=== PATIENT | female | born 1965 | race Caucasian/White ===

== ENCOUNTER 2018-07-17 10:33 | Emergency (ER) | payer MEDICAID ==
--- NOTE | 2018-07-17 13:07 | EDM.PDOC ---
ED HPI GENERAL MEDICAL PROBLEM - General Chief Complaint: Skin Complaint Stated Complaint: SORES ON FEMALE AREA Time Seen by Provider: 07/17/18 11:40 Source of Information: Reports: Patient History Limitations: Reports: No Limitations - History of Present Illness INITIAL COMMENTS - FREE TEXT/NARRATIVE: pt states she has some cystic lesions around her vaginia which have increased in number. She has no urine symptoms. S he is having discharge. She has had a hysterectomy. Onset: Gradual Duration: Week(s): Associated Symptoms: Reports: No Other Symptoms - Related Data Allergies Allergy/AdvReac Type Severity Reaction Status Date / Time No Known Allergies Allergy Verified 07/17/18 11:25 Home Meds: Home Meds . 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: Polycystic Ovaries Musculoskeletal History: Reports: Arthritis, Back Pain, Chronic, Fracture Neurological History: Reports: Seizure Psychiatric History: Reports: Anxiety, Bipolar, Depression, Mood Swings, OCD, Psych Hospitalization(s), Suicide Attempt, Suicidal Ideation Endocrine/Metabolic History: Reports: Obesity/BMI 30+ Hematologic History: Reports: B12 Deficiency - Infectious Disease History Infectious Disease History: Reports: Chicken Pox - Past Surgical History HEENT Surgical History: Reports: Adenoidectomy, Oral Surgery, Tonsillectomy Other HEENT Surgeries/Procedures: dentures GI Surgical History: Reports: Bariatric Procedure Other GI Surgeries/Procedures: 2008 Female Surgical History: Reports: Hysterectomy, Salpingo-Oophorectomy Musculoskeletal Surgical History: Reports: Carpal Tunnel, Knee Replacement Other Musculoskeletal Surgeries/Procedures:: partial left knee Social & Family History - Tobacco Use Smoking Status *Q: Former Smoker Used Tobacco, but Quit: Yes Month/Year Tobacco Last Used: 2 months - Caffeine Use Caffeine Use: Reports: Soda - Recreational Drug Use Recreational Drug Use: Yes Recreational Drug Type: Reports: Marijuana/Hashish, Methamphetamine ED ROS GENERAL - Review of Systems Review Of Systems: See Below Constitutional: Reports: No Symptoms HEENT: Reports: No Symptoms Respiratory: Reports: No Symptoms Cardiovascular: Reports: No Symptoms Endocrine: Reports: No Symptoms GI/Abdominal: Reports: No Symptoms : Reports: Other ( cystric structures around the vag) Musculoskeletal: Reports: No Symptoms ED EXAM, SKIN/RASH Exam: See Below Text/Narrative:: pt arrived with some cystic strures around the vag. She has a heavy discharge. Exam Limited By: No Limitations General Appearance: Alert, Anxious Ears: Normal TMs Nose: Normal Inspection Throat/Mouth: Normal Inspection Head: Atraumatic Neck: Normal Inspection Respiratory/Chest: No Respiratory Distress Cardiovascular: Regular Rate, Rhythm (Female) Exam: Other (pt is having vag discharge and she has some papiloma type lesions. ) Back Exam: Normal Inspection Extremities: Normal Inspection Neurological: Alert, Oriented Course - Vital Signs Last Recorded V/S: Last Vital Signs Temp 35.8 C 07/17/18 11:14 Pulse 74 07/17/18 11:14 Resp 16 07/17/18 11:14 BP 107/67 07/17/18 11:14 Pulse Ox 96 07/17/18 11:14 - Orders/Labs/Meds Labs: Laboratory Tests 07/17/18 Range/Units 12:26 Urine Color Yellow Urine Appearance Slightly cloudy Urine pH 8.0 (4.5-8.0) Ur Specific [place] 1.010 (1.008-1.030) Urine Protein Negative (NEGATIVE) mg/dL Urine Glucose (UA) Normal (NEGATIVE) mg/dL Urine Ketones Negative (NEGATIVE) mg/dL Urine Occult Blood Negative (NEGATIVE) Urine Nitrite Negative (NEGATIVE) Urine Bilirubin Negative (NEGATIVE) Urine Urobilinogen Normal (NORMAL) mg/dL Ur Leukocyte Esterase Negative (NEGATIVE) Urine RBC 0-5 (0-5) Urine WBC 5-10 H (0-5) Ur Epithelial Cells Moderate Amorphous Sediment Moderate Urine Bacteria Moderate Urine Mucus Moderate - Re-Assessments/Exams Free Text/Narrative Re-Assessment/Exam: 07/17/18 13:01 pt has clue cells, logan is neg. cultures are pending 07/17/18 13:08 Departure - Departure Time of Disposition: 13:08 Disposition: Home, Self-Care 01 Condition: Fair Clinical Impression: HPV (human papilloma virus) infection, Bacterial vaginitis - Discharge Information Instructions: Human Papillomavirus, [id number], Bacterial Vaginosis, Easy-to- Read Referrals: PCP,None [Primary Care Provider] - Forms: ED Department Discharge Care Plan Goals: appt with Dr walter regarding hpv infection, urine culture pending amoxicillin 500mg tid for bacterial vaginitis. use probiotic while on antibiotic. Use monstat vag cream to avoid yeast infection while on the amoxicillin.
== END 2018-07-17 13:48 | disposition home or self-care (01) ==
LOC: JP.ED 10:33
DX: A63.0 Anogenital (venereal) warts (principal); N76.0 Acute vaginitis; B96.89 Other specified bacterial agents as the cause of diseases classified elsewhere
CPT/HCPCS: 81001; 87086; 87088; 87186; 87210; 87491; 87591; 99283

== ENCOUNTER 2018-07-23 15:09 | Emergency (ER) | payer MEDICAID ==
[2018-07-23] MEDS ORDERED: Ketorolac 30 MG/ML SDV IVPUSH ONE (15:31)
--- NOTE | 2018-07-23 15:44 | EDM.PDOC ---
ED HPI GENERAL MEDICAL PROBLEM - General Chief Complaint: Neurological Problem Stated Complaint: VIA NORTH Time Seen by Provider: 07/23/18 15:31 Source of Information: Reports: Patient, Old Records, RN Notes Reviewed History Limitations: Reports: No Limitations - History of Present Illness INITIAL COMMENTS - FREE TEXT/NARRATIVE: 52-year-old female presents emergency department today via EMS services for seizure and fall, she has a known seizure disorder patient states that she is had may be 2 seizures in last 6 [address]. Was at a local grocery store fell to the ground she ended up hitting her head she does have a large bruise over her left eyebrow she also is complaining of left shoulder pain , initially she was postictal per report by ambulance crew. She is currently titrating off Cymbalta while starting a new medication of Pristiq both are in the SNRI class headache Pain Score (Numeric/FACES): 3 - Related Data Allergies Allergy/AdvReac Type Severity Reaction Status Date / Time bupropion Allergy Shaking Verified 07/23/18 15:21 Home Meds: Home Meds Desvenlafaxine Succinate [Desvenlafaxine Succinate ER] 100 mg PO DAILY 07/23/18 [History] Divalproex Sodium 500 mg PO DAILY 07/23/18 [History] Folic Acid 1 mg PO DAILY 07/23/18 [History] Lisinopril 5 mg PO DAILY 07/23/18 [History] Magnesium Oxide 400 mg PO DAILY 07/23/18 [History] Naltrexone 50 mg PO DAILY 07/23/18 [History] QUEtiapine Fumarate [Quetiapine Fumarate] 200 mg PO BEDTIME 07/23/18 [History] cloNIDine [Catapres] 0.1 mg PO BID 07/23/18 [History] hydrOXYzine pamoate [Hydroxyzine Pamoate] 50 mg PO Q6H PRN 07/23/18 [History] Past Medical History Cardiovascular History: Reports: Hypertension 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: Polycystic Ovaries Musculoskeletal History: Reports: Arthritis, Back Pain, Chronic, Fracture Neurological History: Reports: Seizure Psychiatric History: Reports: Anxiety, Bipolar, Depression, Mood Swings, OCD, Psych Hospitalization(s), Suicide Attempt, Suicidal Ideation Endocrine/Metabolic History: Reports: Obesity/BMI 30+ Hematologic History: Reports: B12 Deficiency - Infectious Disease History Infectious Disease History: Reports: Chicken Pox - Past Surgical History HEENT Surgical History: Reports: Adenoidectomy, Oral Surgery, Tonsillectomy Other HEENT Surgeries/Procedures: dentures GI Surgical History: Reports: Bariatric Procedure Other GI Surgeries/Procedures: 2008 Female Surgical History: Reports: Hysterectomy, Salpingo-Oophorectomy Musculoskeletal Surgical History: Reports: Carpal Tunnel, Knee Replacement Other Musculoskeletal Surgeries/Procedures:: partial left knee Social & Family History - Tobacco Use Smoking Status *Q: Never Smoker - Caffeine Use Caffeine Use: Reports: Soda - Recreational Drug Use Recreational Drug Use: Yes Recreational Drug Type: Reports: Marijuana/Hashish, Methamphetamine Other Recreational Drug Type: meth twice Recreational Drug Use Frequency: Socially ED ROS GENERAL - Review of Systems Review Of Systems: See Below Constitutional: Reports: No Symptoms, Weight Gain Respiratory: Reports: No Symptoms Cardiovascular: Reports: No Symptoms GI/Abdominal: Reports: No Symptoms : Reports: No Symptoms Musculoskeletal: Reports: Shoulder Pain Skin: Reports: Bruising Neurological: Reports: Headache, Seizure ED EXAM, HEAD INJURY - Physical Exam Exam: See Below Text/Narrative:: General: Female, not in any distress, alert and oriented x3 HEENT: head is a large hematoma is appreciated above her left eyebrow about the size of a golf ball normocephalic, eyes pupils equal round reactive to light, sclera clear no conjunctivitis appreciated, extraocular eye movements intact. Ears tympanic membranes clear and leonard landmarks and light reflex are present bilaterally canals are clear. Nose no septal deviation, nares are clear, no blood present. Mouth mucosa is moist and pink no erythema or exudate noted in soft palate, tongue is midline does have a superficial laceration on the right lateral aspect of the tongue uvula is midline, dentition is intact. Neck: Supple no thyromegaly no tracheal deviation. Nodes: Cervical nodes subclavicular nodes nontender no palpable lymphadenopathy noted. Lungs: clear to auscultation bilaterally with symmetrical respirations, no adventitious noise appreciated. CV: Regular rate and rhythm S1 and S2 appreciated no murmurs rubs or gallops noted. Abdomen: Soft, nontender, no palpable masses or organomegaly appreciated, no distention no guarding bowel sounds are present. Neuro: Cranial nerves II test with pupillary light reflex 4 mm to 2 mm bilaterally, CN III test pupillary constriction, limited elevation and eye abduction bilaterally, CN IV downward movement of eyes bilaterally, CN V good jaw movement, CN lateral deviation of the eyes bilaterally to finger movement , CN VII symmetrical smile shows teeth without difficulty, CN VIII pass finger rub to ears bilaterally, CN IX adequate voice and tone, CN X adequate voice and tone no difficulty swallowing, CN XI can shrug shoulders without difficulty, CN XII can stick tongue out without difficulty, cranial nerves II to XII intact as tested, Skin: Warm and dry, intact Extremities: She is tender over the left shoulder a cane appreciate a step-off on the clavicle, no tenderness right shoulder no tenderness elbows or wrists bilaterally pelvic rock's is negative no tenderness knees or ankles bilaterally Course - Vital Signs Last Recorded V/S: Last Vital Signs Temp 96.4 F 07/23/18 15:21 Pulse 99 07/23/18 17:53 Resp 18 07/23/18 15:21 BP 132/81 07/23/18 17:53 Pulse Ox 98 07/23/18 16:35 - Orders/Labs/Meds Labs: Laboratory Tests 07/23/18 07/23/18 07/23/18 Range/Units 16:06 16:06 16:06 WBC 6.5 (4.5-11.0) K/uL RBC 4.70 (3.30-5.50) M/uL Hgb 14.5 (12.0-15.0) g/dL Hct 44.9 (36.0-48.0) % MCV 96 (80-98) fL MCH 31 (27-31) pg MCHC 32 (32-36) % Plt Count 143 L (150-400) K/uL Neut % (Auto) 66 (36-66) % Lymph % (Auto) 26 (24-44) % [place] % (Auto) 8 H (2-6) % Eos % (Auto) 0 L (2-4) % Baso % (Auto) 0 (0-1) % Sodium 141 (140-148) mmol/L Potassium 4.1 (3.6-5.2) mmol/L Chloride 106 (100-108) mmol/L Carbon Dioxide 24 (21-32) mmol/L Anion Gap 10.9 (5.0-14.0) mmol/L BUN 18 (7-18) mg/dL Creatinine 0.9 (0.6-1.0) mg/dL Est Cr Clr Drug Dosing 61.17 mL/min Estimated GFR (MDRD) > 60 (>60) Glucose 77 (74-106) mg/dL Calcium 9.2 (8.5-10.1) mg/dL Valproic Acid 53.1 (50.0-100.0) ug/mL Meds: Medications Discontinued Medications Generic Name Dose Route Start Last Admin Trade Name Freq PRN Reason Stop Dose Admin Ketorolac Tromethamine 30 mg 07/23/18 15:31 07/23/18 16:02 Toradol IVPUSH 07/23/18 15:32 30 mg ONETIME ONE Administration Departure - Departure Time of Disposition: 18:16 Disposition: Home, Self-Care 01 Condition: Fair Clinical Impression: Seizure Fracture of clavicle, left, open Qualifiers: Encounter type: initial encounter Clavicle location: lateral end Fracture alignment: nondisplaced Qualified Code(s): S42.035B - Nondisplaced fracture of lateral end of left clavicle, initial encounter for open fracture Facial contusion Qualifiers: Encounter type: initial encounter Qualified Code(s): S00.83XA - Contusion of other part of head, initial encounter - Discharge Information Referrals: PCP,None [Primary Care Provider] - Forms: ED Department Discharge Additional Instructions: Use ibuprofen for baseline pain control use hydrocodone for breakthrough pain please follow-up with orthopedics in the next couple days they should be calling you with an appointment time - Assessment/Plan Plan: Assessment Acuity = acute Site and laterality = left distal clavicle fracture, status post seizure contusion forehead left side Etiology = secondary to a fall Manifestations = none Location of injury = Home Lab values = CBC, BMP within normal limits valproic acid also therapeutic, CT scan head maxillofacial bones show no acute fracture facial swelling over the left side of the face, x-ray of the shoulder reveal distal clavicle fracture Plan Called discussed case with Dr. Spangler at 1805 after reviewing the films recommended nonoperative intervention at this time follow-up in clinic to 3 days she'll be placed in a sling hydrocodone as needed for pain control , hydrocodone 5/325 one tab by mouth 3 times a day when necessary total #10 provided for pain control This note was dictated using [employer] voice recognition software please call with any questions on syntax or grammar.
--- NOTE | 2018-07-23 17:06 | CRLCT ---
Indication: Fall, head trauma. Technique: CT of the head without contrast. Bone and soft tissue algorithms. Comparison: No prior studies available for comparison at this institution. Findings: No acute intracranial hemorrhage or extra-axial collection. No evidence of acute cortical infarction. No mass effect or midline shift. Normal cerebral volume. The ventricles are normal in size, shape and contour. There is normal duarte and white matter differentiation. The orbital contents are normal. Mild opacification of a right posterior ethmoid air cell. Mastoid air cells are clear. No calvarial fractures. No lytic or sclerotic osseous lesions within the calvarium or skull base. Large left periorbital soft tissue swelling and hematoma. Incidental hyperostosis frontalis internus. Impression : 1. No acute intracranial abnormality. 2. Large left periorbital soft tissue swelling and hematoma. No calvarial fracture. No evidence of globe injury. Please note that all CT scans at this facility use dose modulation, iterative reconstruction, and/or weight-based dosing when appropriate to reduce radiation dose to as low as reasonably achievable. Dictated by Jonas Marcos MD @ Jul 23 2018 5:01PM Signed by Dr. Jonas Marcos @ Jul 23 2018 5:04PM
--- NOTE | 2018-07-23 17:10 | CRLCT ---
Indication: Fall, head trauma. Technique: Helical axial sections were obtained through the facial skeleton, mandible and adjacent structures without intravenous contrast material. Data was reformatted not only in axial but also coronal planes. Comparison: No prior studies available for comparison at this institution. Findings: No fracture is demonstrated in the facial skeleton or mandible. Large left periorbital soft tissue swelling and scalp hematoma. The orbits and their contents are normal in appearance. There is no evidence for penetrating injury to the ocular globes. The lenses are situated in their normally expected anterior locations. No radiodense or metallic foreign body is demonstrated. Mild opacification of a the right posterior ethmoid air cell. The sinonasal cavities are otherwise clear. The ostiomeatal complexes on each side are structurally normal and widely patent. The patient is edentulous. The nasal septum is deviated to left. The visualized portions of the brain are normal in appearance. Incidental 4 mm osteoma projects into the right olfactory fossa of uncertain clinical significance. Incidental hyperostosis frontalis internus. Impression: 1. Large left periorbital soft tissue swelling and scalp hematoma. 2. No facial bone fracture. 3. Left carotid artery atherosclerotic calcifications, greater than expected for the patient`s age. Please note that all CT scans at this facility use dose modulation, iterative reconstruction, and/or weight-based dosing when appropriate to reduce radiation dose to as low as reasonably achievable. Dictated by Jonas Marcos MD @ Jul 23 2018 5:04PM Signed by Dr. Jonas Marcos @ Jul 23 2018 5:09PM
--- NOTE | 2018-07-23 17:57 | CRLCR ---
INDICATION: Clavicular pain following fall TECHNIQUE: Three views left shoulder COMPARISON: None FINDINGS: Bones: Fracture distal left clavicle. Joint spaces: Unremarkable. Soft tissues: Unremarkable. IMPRESSION: Fracture distal left clavicle. Dictated by Jonas Son MD @ 07/23/2018 5:56:02 PM Dictated by: Jonas Son MD @ 07/23/2018 17:56:07 (Electronically Signed)
== END 2018-07-23 18:59 | disposition home or self-care (01) ==
LOC: JP.ED 15:09
DX: G40.909 Epilepsy, unspecified, not intractable, without status epilepticus (principal); S00.83XA Contusion of other part of head, initial encounter; S42.035 Nondisplaced fracture of lateral end of left clavicle; F31.9 Bipolar disorder, unspecified; F41.9 Anxiety disorder, unspecified; I10 Essential (primary) hypertension; Z88.8 Allergy status to other drugs, medicaments and biological substances; Z79.899 Other long term (current) drug therapy; W18.30XA Fall on same level, unspecified, initial encounter
CPT/HCPCS: 36415; 70450; 70486; 73030-LT; 80048; 80164; 85025; 96374; 99284; 99285-25; J1885

== ENCOUNTER 2019-06-22 10:31 | Emergency (ER) | payer MEDICAID ==
--- NOTE | 2019-06-22 11:14 | EDM.PDOC ---
ED HPI GENERAL MEDICAL PROBLEM - General Chief Complaint: Upper Extremity Injury/Pain Stated Complaint: BACK AND RIB PAIN- POST FALL Time Seen by Provider: 06/22/19 11:00 Source of Information: Reports: Patient History Limitations: Reports: No Limitations - History of Present Illness INITIAL COMMENTS - FREE TEXT/NARRATIVE: Patient presents for evaluation of injury to the right side of the chest Monday evening into , 18 June. She states that she had been drinking earlier in the evening and when she went into the bathroom, she fell and hit both the edge of the toilet and also the lip of the shower and closure. The next day, she was somewhat sore but then sat up or change position in some other way and felt a sudden crack/crunch feeling on the right side of her chest and pain increased. She can breathe alright but if she sneezes or coughs the pain is extreme in the area of injury. She hasn't noticed any bruising but has used some ibuprofen occasionally since injury. Because of persistence of symptoms she came in today. Duration: Day(s): (3 days ago) Location: Reports: Chest (Right posterior lateral chest) Quality: Reports: Ache, Stabbing Severity: Moderate Improves with: Reports: None Worsens with: Reports: Movement Context: Reports: Trauma - Related Data Allergies Allergy/AdvReac Type Severity Reaction Status Date / Time bupropion Allergy Shaking Verified 06/22/19 10:56 Home Meds: Home Meds Divalproex Sodium 500 mg PO DAILY 07/23/18 [History] Folic Acid 1 mg PO DAILY 07/23/18 [History] Lisinopril 5 mg PO DAILY 07/23/18 [History] cloNIDine [Catapres] 0.1 mg PO BID 07/23/18 [History] hydrOXYzine pamoate [Hydroxyzine Pamoate] 50 mg PO Q6H PRN 07/23/18 [History] DULoxetine [Cymbalta] 60 mg PO DAILY 07/26/18 [History] Desvenlafaxine [Desvenlafaxine ER] 50 mg PO DAILY 07/26/18 [History] Ferrous Sulfate 325 mg PO DAILY 07/26/18 [History] Past Medical History Cardiovascular History: Reports: Hypertension 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 states quite may 2018 Endocrine/Metabolic History: Reports: Obesity/BMI 30+ Hematologic History: Reports: B12 Deficiency - Infectious Disease History Infectious Disease History: Reports: Chicken Pox - Past Surgical History HEENT Surgical History: Reports: Adenoidectomy, Oral Surgery, Tonsillectomy Other HEENT Surgeries/Procedures: dentures GI Surgical History: Reports: Bariatric Procedure Other GI Surgeries/Procedures: 2007 Female Surgical History: Reports: Hysterectomy, Salpingo-Oophorectomy Musculoskeletal Surgical History: Reports: Carpal Tunnel, Knee Replacement Other Musculoskeletal Surgeries/Procedures:: partial left knee Social & Family History - Caffeine Use Caffeine Use: Reports: Coffee, Energy Drinks, Soda, Tea Review of Systems - Review of Systems Review Of Systems: Comprehensive ROS is negative, except as noted in HPI. ED EXAM, GENERAL - Physical Exam Exam: See Below Exam Limited By: No Limitations General Appearance: Alert, Mild Distress Neck: Supple, Non-Tender Respiratory/Chest: Lungs Clear, Other (Pain on palpation along the posterior old bilateral lower right ribs.) Cardiovascular: Regular Rate, Rhythm Course - Vital Signs Last Recorded V/S: Last Vital Signs Temp 36.0 C L 06/22/19 11:05 Pulse 71 06/22/19 11:05 Resp 16 06/22/19 11:05 BP 148/80 H 06/22/19 11:05 Pulse Ox 97 06/22/19 11:05 - Orders/Labs/Meds Orders: Active Orders 24 hr Category Date Time Status Ribs 2V wo Chest Rt [CR] Stat Exams 06/22/19 11:25 Taken Meds: Medications Discontinued Medications Generic Name Dose Route Start Last Admin Trade Name Freq PRN Reason Stop Dose Admin Ibuprofen 800 mg 06/22/19 11:27 06/22/19 11:43 Motrin PO 06/22/19 11:28 800 mg ONETIME ONE Administration - Re-Assessments/Exams Free Text/Narrative Re-Assessment/Exam: 06/22/19 11:31 Patient will be given ibuprofen 800 mg. Chest x-ray will be obtained. 06/22/19 12:58 I returned to review imaging findings which shows what appears to be a mildly displaced fracture of the lateral portion of the right eighth rib. I discussed that she may need to sleep upright for the next few nights. Cold packs to painful area 20 minutes off and on. Avoid painful movements. Ensure that she does deep breathing several times a day area prescriptions sent for hydrocodone 5/325 mg, 20 tablets; use as directed. She should recheck with primary care in 2 weeks. Return to ER if feeling worse in anyway. Departure - Departure Time of Disposition: 12:52 Disposition: Home, Self-Care 01 Condition: Good Clinical Impression: Rib fracture Qualifiers: Encounter type: initial encounter Rib fracture type: single rib Fracture type: closed Laterality: right Qualified Code(s): S22.31XA - Fracture of one rib, right side, initial encounter for closed fracture - Discharge Information *PRESCRIPTION DRUG MONITORING PROGRAM REVIEWED*: Not Applicable *COPY OF PRESCRIPTION DRUG MONITORING REPORT IN PATIENT CAL: Not Applicable Instructions: Rib Fracture Referrals: Bria Mosqueda PA-C [Primary Care Provider] - Forms: ED Department Discharge Additional Instructions: Avoid painful movements of trunk. He may need to sleep sitting up for several nights. Cold packs to painful areas 20 minutes off and on. Use hydrocodone as prescribed for stronger pain. Plan to eventually transitioning to ibuprofen 4 rib injury pain. You should recheck with primary care in 2 weeks or so to reassess you're healing. Take for deep breaths at least 4 times a day to reduce pneumonia risk. Return to ER if feeling worse in anyway. Sepsis Event Note - Focused Exam Vital Signs: Vital Signs Temp Pulse Resp BP Pulse Ox 06/22/19 11:05 36.0 C L 71 16 148/80 H 97 06/22/19 10:55 36.0 C L 71 16 148/80 H 97 Date Exam was Performed: 06/22/19 Time Exam was Performed: 12:57 - My Orders Last 24 Hours: My Active Orders 06/22/19 11:25 Ribs 2V wo Chest Rt [CR] Stat - Assessment/Plan Last 24 Hours: My Active Orders 06/22/19 11:25 Ribs 2V wo Chest Rt [CR] Stat
[2019-06-22] MEDS ORDERED: Ibuprofen 800 MG Tab PO ONE (11:27)
--- NOTE | 2019-06-24 10:14 | CR ---
Ribs 2V wo Chest Rt CLINICAL HISTORY: Injury FINDINGS: There is a nondisplaced fracture of the right 10th rib. There is no pleural effusion or pneumothorax IMPRESSION: Right 10th rib fracture
== END 2019-06-22 13:10 | disposition home or self-care (01) ==
LOC: JP.ED 10:31
DX: S22.31XA Fracture of one rib, right side, initial encounter for closed fracture (principal); I10 Essential (primary) hypertension; F31.9 Bipolar disorder, unspecified; E66.9 Obesity, unspecified; Z88.8 Allergy status to other drugs, medicaments and biological substances; Z79.899 Other long term (current) drug therapy; Z68.39 Body mass index [BMI] 39.0-39.9, adult; W19.XXXA Unspecified fall, initial encounter
CPT/HCPCS: 71100; 99282; 99283; A9270